=== PATIENT | male | born 1980 | race Two or more races ===

== ENCOUNTER 2019-12-31 21:04 | Emergency (ER) | payer OTHER ==
[~2019-12-31] VITALS: Ht 172.7 cm; Wt 91.4 kg
[2019-12-31 21:13] VITALS: BP 114/60
[2019-12-31] MEDS ORDERED: FLUORESCEIN OPHTHALMIC 1 MG STRIP ONE ×2 (22:27→22:42)
[2019-12-31] MEDS ORDERED: PROPARACAINE OPHTH 0.5%, 15ML ONE ×2 (22:27→22:42)
--- NOTE | 2019-12-31 22:36 | NUR ---
MEDS PULLED FOR PROVIDER ADMIN
== END 2019-12-31 23:40 | disposition home or self-care (01) ==
LOC: ED 22:04
DX: H10.211 Acute toxic conjunctivitis, right eye (principal)
CPT/HCPCS: 99283